=== PATIENT | male | born 1970 | race Caucasian/White ===

== ENCOUNTER 2020-03-21 07:24 | Inpatient (IN) | payer BC ==
[~2020-03-21] VITALS: Ht 180.3 cm; Wt 88.0 kg
[2020-03-21 07:32] VITALS: BP 131/86
[2020-03-21] MEDS ORDERED: CLARITIN10 M3 PO (07:38)
[2020-03-21 08:05] LABS: ABSOLUTE LYMPHOCYTES 0.8 thou/uL (0.8-5.3); ABSOLUTE MONOCYTES 0.4 thou/uL (0.0-1.2); ABSOLUTE NEUTROPHILS 4.3 thou/uL (1.6-8.1); BASOPHILS 0.4 %; EOSINOPHILS 0.1 %; HEMOGLOBIN 14.9 gm/dL (14.0-18.0); LYMPHOCYTES 14.8 %; MCH 29.7 pg (26.0-34.0); MCHC 35.6 g/dL (28.0-37.0); MCV 83.4 fL (80.0-100.0); MONOCYTES 7.1 %; MPV 7.4 fl. (7.2-11.1); NUCLEATED RBCS 0 /100WBC; PLATELET COUNT* 222 thou/uL (150-400); POLYS 77.6 %; RBC 5.04 mil/uL (4.50-6.00); RDW-CV 13.7 % (10.5-14.5); WBC 5.6 thou/uL (4.0-11.0)
[2020-03-21 08:14] LABS: CALCIUM 7.7 mg/dL (8.5-10.1); CREATININE 1.1 mg/dL (0.6-1.3); POTASSIUM 3.6 mmol/L (3.5-5.1)
[2020-03-21 08:15] LABS: PCO2 32.9 mmHg (35.0-45.0); PO2 61.8 mmHg (75.0-100.0); pH 7.447 (7.340-7.450)
[2020-03-21 08:18] LABS: ALBUMIN 3.6 g/dL (3.4-5.0); MAGNESIUM 2.1 mg/dL (1.8-2.4); TOTAL BILIRUBIN 0.6 mg/dL (<0.1-1.0); TOTAL PROTEIN 7.6 g/dL (6.4-8.2)
[2020-03-21 10:35] VITALS: BP 123/78
[2020-03-21 11:00] VITALS: BP 117/70
[2020-03-21 17:27] LABS: CALCIUM 7.4 mg/dL (8.5-10.1); POTASSIUM 3.7 mmol/L (3.5-5.1)
[2020-03-21 20:30] VITALS: BP 114/75
[2020-03-22] VITALS: BP 115/69
[2020-03-22 04:00] VITALS: BP 115/67
[2020-03-22 08:51] LABS: HEMATOCRIT 40.6 % (42.0-52.0); HEMOGLOBIN 14.1 gm/dL (14.0-18.0); MCH 29.4 pg (26.0-34.0); MCHC 34.8 g/dL (28.0-37.0); MCV 84.4 fL (80.0-100.0); MPV 7.6 fl. (7.2-11.1); RBC 4.81 mil/uL (4.50-6.00); RDW-CV 13.6 % (10.5-14.5); WBC 5.9 thou/uL (4.0-11.0)
[2020-03-22 09:00] VITALS: BP 125/72
[2020-03-22 09:17] LABS: ALBUMIN 3.2 g/dL (3.4-5.0); CALCIUM 7.7 mg/dL (8.5-10.1); CREATININE 0.9 mg/dL (0.6-1.3); MAGNESIUM 2.3 mg/dL (1.8-2.4); POTASSIUM 3.6 mmol/L (3.5-5.1); TOTAL BILIRUBIN 0.5 mg/dL (<0.1-1.0)
[2020-03-22 14:04] LABS: URINE BILIRUBIN NEGATIVE (Negative); URINE BLOOD NEGATIVE (Negative); URINE CLARITY CLEAR; URINE COLOR YELLOW; URINE GLUCOSE-RANDOM NEGATIVE (Negative); URINE KETONES 1+ (Negative); URINE LEUKOCYTES-REFLEX NEGATIVE (Negative); URINE NITRITE-REFLEX NEGATIVE (Negative); URINE PROTEIN NEGATIVE (Negative); URINE UROBILINOGEN 0.2 E.U./dl (0.2-1.0)
[2020-03-22 14:40] VITALS: BP 119/71
[2020-03-22 17:57] LABS: APTT 26.5 Seconds (25.0-31.3); PROTIME 10.5 Seconds (9.20-11.50)
[2020-03-22 20:35] VITALS: BP 125/69
[2020-03-23 03:05] LABS: GLYCOHEMOGLOBIN (HGB A1C) 5.8 % (4.8-5.6)
[2020-03-23 04:02] VITALS: BP 114/70
[2020-03-23 05:18] LABS: ABSOLUTE LYMPHOCYTES 0.8 thou/uL (0.8-5.3); ABSOLUTE MONOCYTES 0.7 thou/uL (0.0-1.2); ABSOLUTE NEUTROPHILS 7.5 thou/uL (1.6-8.1); BASOPHILS 0.1 %; HEMATOCRIT 39.2 % (42.0-52.0); HEMOGLOBIN 13.5 gm/dL (14.0-18.0); LYMPHOCYTES 8.5 %; MCH 29.5 pg (26.0-34.0); MCHC 34.6 g/dL (28.0-37.0); MCV 85.3 fL (80.0-100.0); MONOCYTES 7.4 %; MPV 7.7 fl. (7.2-11.1); NUCLEATED RBCS 0 /100WBC; PLATELET COUNT* 271 thou/uL (150-400); RBC 4.59 mil/uL (4.50-6.00); RDW-CV 13.9 % (10.5-14.5); WBC 8.9 thou/uL (4.0-11.0)
[2020-03-23 05:31] LABS: ALBUMIN 3.1 g/dL (3.4-5.0); CREATININE 0.9 mg/dL (0.6-1.3); MAGNESIUM 2.5 mg/dL (1.8-2.4); POTASSIUM 3.9 mmol/L (3.5-5.1); TOTAL BILIRUBIN 0.3 mg/dL (<0.1-1.0); TOTAL PROTEIN 6.7 g/dL (6.4-8.2)
[2020-03-23 07:59] VITALS: BP 127/71
[2020-03-23 12:56] VITALS: BP 110/55
--- NOTE | 2020-03-23 15:15 | EKG ---
[place] [address] ELECTROCARDIOGRAM REPORT Name: YOLIE STEPHEN Room: [address] ADM IN M.R.#: [id number] Admission: 03/21/20 Attend Phys: Codie Rogers, Discharge: Date of : 72 Date of Service: 03/21/20 0743 Report #: [id number] THIS REPORT FOR: //name// [facility] Test Date: 2020-03-21 Test Time: 07:43:16 Pat Name: YOLIE STEPHEN Department: Room: [address] Gender: M [employer] Specialist: CORA : 1970 Requested By: Gogo Nicholas Order Number: [id number] Wagner MD: Freedom Bragg Measurements Intervals [place] Rate: 100 P: 34 [place]: 49 QRS: 2 QRSD: 107 T: 57 QT: 419 QTc: 541 Interpretive Statements Sinus tachycardia artifact noted Probable left atrial enlargement RSR' in V1 or V2, right VCD or RVH Prolonged QT interval Artifact in lead(s) II,III,aVF No previous ECG available for comparison Electronically Signed On 03-23-2020 15:15:41 CDT by Freedom Bragg [email or web address] <ELECTRONICALLY SIGNED> By: Freedom Bragg MD, FAC 03/23/20 1515 0743 0743 Freedom Bragg MD, [facility] /EPI
[2020-03-23 16:02] VITALS: BP 114/66
[2020-03-23 19:50] VITALS: BP 128/78
[2020-03-23 20:00] VITALS: BP 142/76
[2020-03-24] VITALS: BP 118/73
[2020-03-24 04:00] VITALS: BP 109/78
[2020-03-24 04:29] LABS: CALCIUM 7.6 mg/dL (8.5-10.1); CREATININE 0.8 mg/dL (0.6-1.3); MAGNESIUM 2.4 mg/dL (1.8-2.4); POTASSIUM 4.1 mmol/L (3.5-5.1)
[2020-03-24 08:00] VITALS: BP 123/73
--- NOTE | 2020-03-24 12:35 | CON ---
[address] [address] CONSULTATION Name: YOLIE STEPHEN Room: [address] IN M.R.#: [id number] Admission: 03/21/20 Attend Phys: Codie Rogers MD Discharge: Date of : 72 Report #: [id number] THIS REPORT FOR: //name// cc: CB Brock family physician/PCP CB - No family physician/PCP ~ THIS REPORT FOR: //name// CC: CB physician/PCP Codie Rogers DATE OF SERVICE: 03/21/2020 Consult has been requested by Dr. Rogers. INDICATION FOR CONSULTATION: COVID-19. HISTORY OF PRESENT ILLNESS: A 49-year-old gentleman with past medical history includes a history of bronchial asthma. He has a remote history of smoking, I am unable to quantify exactly at this time. The patient is now admitted with complaints of a high-grade fever and chills since Monday. The patient has had increase in shortness of breath as well as a cough. He has been bringing up only scanty amounts of sputum. The patient did have a COVID-19 test performed on Monday and it has come back positive. He, at the time of my evaluation, did not complain of any chest pain. He did not complain of nasal discharge or sore throat. There is no swelling of lower extremities or calf pain. He was not complaining of body aches and had not had nausea, vomiting or diarrhea. He denied abdominal pain. The patient, however, while only on 3 liters of nasal cannula did have shortness of breath at rest, which was a noticeable and the patient did cough repeatedly during my exam. He is maintaining O2 saturations in the mid 90s with 3 liters nasal cannula. REVIEW OF SYSTEMS: For 12 points is negative except as mentioned above. PAST MEDICAL HISTORY: Bronchial asthma and allergic rhinitis. SOCIAL HISTORY: There is a remote history of smoking. He says he has not smoked for the last 4 or 5 years and was an occasional smoker, I am unable to quantify exactly, only rare use of alcohol. No known history of illegal drug use. 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 HOME MEDICATIONS: List in the ER states only Claritin, reviewed. FAMILY HISTORY: There [place] [address] CONSULTATION Name: YOLIE STEPHEN Room: [address] IN [facility].#: [id number] Admission: 03/21/20 Attend Phys: Codie Rogers MD Discharge: Date of : 72 Report #: [id number] PHYSICAL EXAMINATION: GENERAL: He is alert, awake and oriented. He did have mild shortness of breath at rest. He did cough repeatedly during evaluation, had a pulse of 89 and a blood pressure of 123/78. He is saturating 95%. He is on 3 liters nasal cannula. He had a high-grade fever this morning at 38.4, which subsequently came down to 37.9. Note that the patient had between received Tylenol. HEENT: Head is normocephalic and atraumatic. NECK: Does not show raised JVP, asymmetry, mass or lymph nodes. CHEST: Symmetrical expansion on inspection and palpation. On auscultation, breath sounds are bilaterally equal, decreased, expirations are prolonged. I do not hear any added sounds. HEART: Regular. There is no murmur. ABDOMEN: Soft and nontender. EXTREMITIES: Lower extremities show no edema and no calf tenderness. SKIN: Dry and intact. NEUROLOGICAL: Moves all extremities bilaterally equally and spontaneously with no focal deficit identified. LABORATORY DATA: The patient's chest x-ray is reviewed. There are moderate sized infiltrates, which are interstitial noted. I do not have a previous chest x-ray available for comparison. The patient's lab work including CBC as well as chemistries are in [facility] reviewed from this morning. Arterial blood gas, which shows a mild reduction in pO2 on room air at 61.8 consistent with acute respiratory insufficiency secondary to COVID-19 in [facility] reviewed. COVID-19 antigen is positive and urinalysis is pending. ASSESSMENT AND PLAN: 1. Acute respiratory insufficiency secondary to COVID-19: We will continue to titrate oxygen. 2. COVID-19: Agree with remdesivir as well as dexamethasone as currently ordered. 3. Bronchial asthma exacerbation: I feel that the patient does have a component of bronchospasm as well and he does have an exacerbation of asthma secondary to COVID-19. He is on albuterol inhaler as well as dexamethasone. Considering this, I will go ahead and give him 2 additional doses of Solu-Medrol overnight as well and then reevaluate tomorrow. Should his condition failed to improve by tomorrow morning then I will be inclined to increase the dose of dexamethasone. 4. Pulmonary infiltrates: He does have atypical looking infiltrates on chest x-ray. This could be from COVID-19 alone; however, community-acquired pneumonia including atypical pneumonia does need to be considered, and therefore, I agree with Zithromax as well as ceftriaxone is currently ordered. We will check more cultures and serologies. I plan to continue Zithromax for at least 5 days for now, also continuing with ceftriaxone. 5. Fluid and electrolytes: The patient appears to be euvolemic at this time. He has received 1 liter normal saline bolus and currently is on 100 [place] [address] CONSULTATION Name: YOLIE STEPHEN Room: [address] IN .R.#: [id number] Admission: 03/21/20 Attend Phys: Codie Rogers MD Discharge: Date of : 72 Report #: [id number] normal saline. In order to avoid development of fluid overload I decided for now, discontinue his IV fluids, but I did order a BMP at 5:00 p.m. and will see the trend on his BUN and creatinine. If these are rising, then I will restart IV fluids. Also, we will watch blood pressure. In case there is a drop in blood pressure, we will also in that case consider restarting IV fluids. We will follow this closely. His potassium was 3.6 this morning. I did go ahead and give him 20. The patient's lactate is noted to be 1.0 this morning. 6. Deep venous thrombosis prophylaxis, Lovenox. 7. Gastrointestinal prophylaxis. He is on Pepcid. 8. Clostridium difficile prophylaxis. We will also given Florastor. The patient is critically ill secondary to COVID-19 at this time. Total time spent providing critical care to this patient today is 41 minutes. <ELECTRONICALLY SIGNED> By: Ismael Siegel MD 03/24/20 1235 1439 [id number] artemio Woo
[2020-03-25 08:17] VITALS: BP 124/73
[2020-03-25] MEDS ORDERED: SINGULAIR 10 MG10 M1 PO (08:43)
[2020-03-25] MEDS ORDERED: LIDOPATCH1 EACH TOP (08:43)
[2020-03-25] MEDS ORDERED: VENTOLIN HFA 1818 GM INH (08:43)
[2020-03-25] MEDS ORDERED: DEXAMETHASONE 44 M1 PO (08:43)
[2020-03-25] MEDS ORDERED: BENZONATATE100 MG PO (08:43)
[2020-03-25 10:53] VITALS: BP 124/73
== END 2020-03-25 12:30 | disposition home or self-care (01) | DRG 871 ==
LOC: M.ERS 07:24 → M.2W 08:57 → M.TBA-ER 08:57 → M.2W 10:44
PROVIDERS: Internal Medicine Critical Care Medicine; Personal Emergency Response Attendant; ADMIT Internal Medicine; ATTEND Internal Medicine
PROC: XW033E5 Introduction of Remdesivir Anti-infective into Peripheral Vein, Percutaneous Approach, New Technology Group 5 (ICD-10-PCS; principal; 2020-03-21)
PROC: XW033E5 Introduction of Remdesivir Anti-infective into Peripheral Vein, Percutaneous Approach, New Technology Group 5 (ICD-10-PCS; 2020-03-22)
PROC: XW033E5 Introduction of Remdesivir Anti-infective into Peripheral Vein, Percutaneous Approach, New Technology Group 5 (ICD-10-PCS; 2020-03-23)
PROC: XW033E5 Introduction of Remdesivir Anti-infective into Peripheral Vein, Percutaneous Approach, New Technology Group 5 (ICD-10-PCS; 2020-03-24)
DX: A41.89 Other specified sepsis (principal); J12.89 Other viral pneumonia; U07.1 COVID-19; J96.01 Acute respiratory failure with hypoxia; J45.901 Unspecified asthma with (acute) exacerbation; R73.03 Prediabetes; Z79.899 Other long term (current) drug therapy

== ENCOUNTER → 2020-05-12 | Outpatient (CLI) | payer BC ==
[~2020-05-12] MED LIST: BENZONATATE100 MG PO; CLARITIN10 M3 PO; DEXAMETHASONE 44 M1 PO; LIDOPATCH1 EACH TOP; SINGULAIR 10 MG10 M1 PO; VENTOLIN HFA 1818 GM INH
== END ==
LOC: M.RAD 14:20
PROVIDERS: ATTEND Internal Medicine Critical Care Medicine
DX: U07.1 COVID-19 (principal); J12.89 Other viral pneumonia; J45.30 Mild persistent asthma, uncomplicated; R91.8 Other nonspecific abnormal finding of lung field

== ENCOUNTER → 2020-07-02 | Outpatient (CLI) | payer BC ==
--- NOTE | ~2020-07-02 | PF ---
[address] [address] PULMONARY FUNCTION REPORT Name: YOLIE STEPHEN Room: [facility]#: [id number] Admission: 07/02/20 Attend Phys: Ismael Siegel MD Discharge: Date of : 72 Report #: [id number] THIS REPORT FOR: //name// cc: CB Brock family physician/PCP CB - Delmy family physician/PCP ~ CC: Ismael Siegel [facility] physician/PCP DATE OF SERVICE: 07/02/2020 The FEV1/FVC ratio is normal at 86% with an FVC normal at 83%. The FEV1 is also normal at 92%. The MEZ88-12 is normal at 138%. There is no significant change in any of these values after the administration of a bronchodilator. The patient's post-bronchodilator FEV1 is noted to be 3.81 liters. The total lung capacity is mildly decreased to 77% with residual volume decreased to 51%. The DLCO as adjusted for hemoglobin is normal at 94%. The patient's flow volume loop is normal. IMPRESSION: 1. Normal spirometry. 2. Mild restriction on lung volumes with total lung capacity mildly decreased to 77%. 3. DLCO normal at 94%. By: 1413 1418Amustapha Siegel MD /nt
== END ==
LOC: M.PUL 07:54
PROVIDERS: ATTEND Internal Medicine Critical Care Medicine
DX: J45.30 Mild persistent asthma, uncomplicated (principal)

== ENCOUNTER → 2020-07-29 | Outpatient (CLI) | payer BC | LOC: M.SLEEPLAB 20:00 | PROVIDERS: ATTEND Internal Medicine Critical Care Medicine | DX: G47.10 Hypersomnia, unspecified (principal) ==

== ENCOUNTER → 2020-10-29 | Outpatient (CLI) | payer OTHER ==
--- NOTE | 2020-11-17 15:38 | SLEEP ---
[address] [address] SLEEP STUDY REPORT Name: YOLIE STEPHEN Room: [facility]#: [id number] Admission: 10/29/20 Attend Phys: Ismael Siegel MD Discharge: Date of : 72 Report #: [id number] THIS REPORT FOR: cc: CB - No family physician/PCP FAM - No family physician/PCP Ismael Siegel MD ~ This study has been reviewed in its entirety by a board certified sleep specialist DATE OF SERVICE: 10/29/2020 SLEEP STUDY INDICATION FOR SLEEP STUDY: Obstructive as well as central sleep apnea recorded on the last sleep study. Sleep study is now being performed for positive airway pressure titration. INTERPRETATION: Total duration of the study is 442 minutes. During this time duration, the patient was asleep for 338 minutes with an overall sleep efficiency of 76%. Sleep onset occurred 10 minutes after lying down in bed and REM onset was 83 minutes after sleep onset. N1 sleep duration was 5%, N2 duration was 49%, N3 duration was 20% and REM duration was 26%. Periodic limb movement index was normal at 2.7, arousal index was mildly elevated to 22.7. This is a CPAP titration. A review of the CPAP titration indicates the patient was titrated beginning with a CPAP pressure of 5 cm of water, gradually increasing it to 7 cm of water. Overall, there is adequate control of the patient's sleep disordered respirations with the administration of a CPAP of 6 as well as 7 cm of water, there is a sustained non-REM as well as REM sleep recorded on both of these CPAP pressures; however, primarily the patient was on his sides at a CPAP pressure of 6 cm of water. There is sustained supine sleep including sustained REM supine sleep recorded on a CPAP pressure of 7 cm of water, this also lead to adequate maintenance of O2 saturations. IMPRESSION: Based on the last sleep study, the patient has a mild obstructive as well as central sleep apnea. There also was some alpha intrusion on his previous sleep study during REM sleep. Based on this sleep study, the patient predominantly appears to have obstructive sleep apnea, which is adequately controlled with the administration of a CPAP of 6-7 cm of water. Sustained supine sleep was only documented on a CPAP of 7 cm of water. RECOMMENDATIONS: Recommend a CPAP of 7 cm of water [place] [address] SLEEP STUDY REPORT Name: YOLIE STEPHEN Room: [facility]#: [id number] Admission: 10/29/20 Attend Phys: Ismael Siegel MD Discharge: Date of : 72 Report #: [id number] mask per patient preference while asleep. During this sleep study an AirFit N20 size medium nasal mask was used with a C-Flex of 2. I recommend avoiding driving or other activities requiring vigilance if drowsy. The patient's entire sleep study was reviewed by board certified sleep physician. <ELECTRONICALLY SIGNED> By: Ismael Siegel MD 11/17/20 1538 1407 1440Ismael Siegel MD /nt
== END ==
LOC: M.SLEEPLAB 09-15 20:00
PROVIDERS: ATTEND Internal Medicine Critical Care Medicine
DX: G47.33 Obstructive sleep apnea (adult) (pediatric) (principal); G47.31 Primary central sleep apnea

== ENCOUNTER → 2021-02-16 | Outpatient (CLI) | payer OTHER | LOC: M.LAB 14:23 | PROVIDERS: ATTEND Internal Medicine Critical Care Medicine | DX: J45.30 Mild persistent asthma, uncomplicated (principal); R06.02 Shortness of breath ==